=== PATIENT | female | born 2005 | race Caucasian/White ===

== ENCOUNTER → 2024-03-01 | Outpatient (CLI) | payer BC, MEDICAID | END | disposition home or self-care (01) | LOC: RAD 08:53 | PROVIDERS: ATTEND Nurse Practitioner Obstetrics & Gynecology | DX: O09.892 Supervision of other high risk pregnancies, second trimester (principal); Z3A.15 15 weeks gestation of pregnancy | CPT/HCPCS: 76805 ==